=== PATIENT | female | born 1950 | race Caucasian/White ===

== ENCOUNTER 2017-04-12 19:16 | Emergency (ER) | payer MEDICARE, OTHER ==
[~2017-04-12] VITALS: Ht 165.1 cm; Wt 68.0 kg
[2017-04-12] MEDS ORDERED: LACTULOSE 10 G/15 ML UDC (PYXIS) PO ONE (20:30)
[2017-04-12] MEDS ORDERED: NA PHOS,M-B/NA PHOS,DI-BA 1 EA ENEMA RC ONE ×2 (20:30→20:33)
[2017-04-12] MEDS ORDERED: LACTULOSE 10 G/15 ML UDC (PYXIS) ONE (20:33)
[2017-04-12] MEDS ORDERED: BISACODYL SUPP (10 MG) 10 MG/SUPP.RECT SUPP.RECT RC ONE (20:33)
[2017-04-12] MEDS: BISACODYL SUPP (10 MG) 10 MG/SUPP.RECT SUPP.RECT RC ONE ×2 (20:45→21:22)
--- NOTE | 2017-04-12 20:46 | NUR ---
PT MEDICATED ORDERED.
[2017-04-12 21:29] VITALS: BP 115/68
== END 2017-04-12 21:29 | disposition home or self-care (01) ==
LOC: ER 19:23
DX: K59.00 Constipation, unspecified (principal); E03.9 Hypothyroidism, unspecified
CPT/HCPCS: 99283; A4606; Z7610